=== PATIENT | female | born 1935 | race Two or more races ===

== ENCOUNTER 2019-03-01 23:04 | Inpatient (IN) | payer OTHER ==
[~2019-03-01] VITALS: Ht 149.9 cm; Wt 65.8 kg
[~2019-03-01 23:04] MED LIST: ABILIFY5 MG PO; ALTACE5 MG; BUDEPRION XL300 MG PO; CYPROHEPTADINE H4 MG PO; EXELON1 PATCH .1; LEXAPRO5 MG PO; NAMENDA10 MG; PLAVIX75 MG PO; REMIPRIL; SENNA PLUS TABL1 TAB NGT
[2019-03-01] MEDS ORDERED: ZOCOR20 MG (23:29)
[2019-03-01] MEDS ORDERED: NAMENDA5 MG (23:29)
[2019-03-01] MEDS ORDERED: ZYPREXA2.5 MG (23:30)
[2019-03-01] MEDS ORDERED: ALTACE5 MG (23:30)
[2019-03-01] MEDS ORDERED: LEXAPRO20 MG (23:30)
[2019-03-01] MEDS ORDERED: ZIAC 2.5-6.251 EACH (23:30)
[2019-03-01] MEDS ORDERED: PLAVIX75 MG (23:30)
[2019-03-01] MEDS ORDERED: ARICEPT10 MG (23:31)
== END 2019-03-06 14:07 | disposition home or self-care (01) | DRG 57 ==
LOC: ER 23:04 → EDBD 23:24 → MEDJ 03-02 13:43
PROVIDERS: ADMIT Internal Medicine
PROC: B020ZZZ Computerized Tomography (CT Scan) of Brain (ICD-10-PCS; principal; 2019-03-02)
PROC: B246ZZZ Ultrasonography of Right and Left Heart (ICD-10-PCS; 2019-03-02)
PROC: B345ZZZ Ultrasonography of Bilateral Common Carotid Arteries (ICD-10-PCS; 2019-03-02)
PROC: B348ZZZ Ultrasonography of Bilateral Internal Carotid Arteries (ICD-10-PCS; 2019-03-02)
PROC: B030ZZZ Magnetic Resonance Imaging (MRI) of Brain (ICD-10-PCS; 2019-03-02)
DX: I69.354 Hemiplegia and hemiparesis following cerebral infarction affecting left non-dominant side (principal); N39.0 Urinary tract infection, site not specified; R65.10 Systemic inflammatory response syndrome (SIRS) of non-infectious origin without acute organ dysfunction; G30.8 Other Alzheimer's disease; F02.80 Dementia in other diseases classified elsewhere, unspecified severity, without behavioral disturbance, psychotic disturbance, mood disturbance, and anxiety; I10 Essential (primary) hypertension; E87.6 Hypokalemia; B96.29 Other Escherichia coli [E. coli] as the cause of diseases classified elsewhere; I73.89 Other specified peripheral vascular diseases; G25.5 Other chorea; G25.89 Other specified extrapyramidal and movement disorders; D72.828 Other elevated white blood cell count
CPT/HCPCS: 70551

== ENCOUNTER 2019-07-11 18:17 | Emergency (ER) | payer OTHER ==
[~2019-07-11] VITALS: Ht 127 cm; Wt 58.1 kg
[~2019-07-11 18:17] MED LIST changes: +ARICEPT10 MG; +LEXAPRO20 MG; +NAMENDA5 MG; +PLAVIX75 MG; +ZIAC 2.5-6.251 EACH; +ZOCOR20 MG; +ZYPREXA2.5 MG
[2019-07-11] MEDS ORDERED: TIROSINT100 MCG (18:25)
== END 2019-07-11 21:23 | disposition home or self-care (01) ==
LOC: ER 18:17
DX: J06.9 Acute upper respiratory infection, unspecified (principal)

== ENCOUNTER 2019-10-14 10:19 | Emergency (ER) | payer OTHER ==
[~2019-10-14] VITALS: Ht 127 cm; Wt 62.6 kg
[~2019-10-14 10:19] MED LIST changes: +TIROSINT100 MCG
[2019-10-14] MEDS ORDERED: NAMENDA10 MG PO (10:40)
[2019-10-14] MEDS ORDERED: LEXAPRO20 MG PO (10:40)
[2019-10-14] MEDS ORDERED: ZIAC 2.5-6.251 EACH PO (10:41)
[2019-10-14] MEDS ORDERED: MAXIMUM DAILY1 EACH PO (10:41)
[2019-10-14] MEDS ORDERED: NUPLAZID34 MG PO (10:42)
== END 2019-10-14 14:16 | disposition home or self-care (01) ==
LOC: ER 10:19
DX: R05 Cough (principal)

== ENCOUNTER 2020-10-21 16:02 | Emergency (ER) | payer OTHER ==
[~2020-10-21] VITALS: Ht 127 cm; Wt 68.0 kg
[~2020-10-21 16:02] MED LIST changes: +LEXAPRO20 MG PO; +MAXIMUM DAILY1 EACH PO; +NAMENDA10 MG PO; +NUPLAZID34 MG PO; +ZIAC 2.5-6.251 EACH PO
[2020-10-21] MEDS ORDERED: NUPLAZID34 MG (16:51)
[2020-10-21] MEDS ORDERED: ZIAC 2.5-6.251 EACH (16:51)
[2020-10-21] MEDS ORDERED: ZOCOR20 MG (16:52)
[2020-10-21] MEDS ORDERED: ZYPREXA2.5 MG (16:53)
[2020-10-21] MEDS ORDERED: XANAX0.25 MG (16:53)
== END 2020-10-21 21:58 | disposition home or self-care (01) ==
LOC: ER 16:02
DX: B34.9 Viral infection, unspecified (principal); R05 Cough; Z03.818 Encounter for observation for suspected exposure to other biological agents ruled out

== ENCOUNTER 2021-01-30 14:44 | Inpatient (IN) | payer OTHER ==
[~2021-01-30] VITALS: Ht 157.5 cm; Wt 68.9 kg
[~2021-01-30 14:44] MED LIST changes: +NUPLAZID34 MG; +XANAX0.25 MG
[2021-01-30] MEDS ORDERED: PLAVIX75 MG PO (15:02)
[2021-01-30] MEDS ORDERED: LEXAPRO20 MG PO (15:02)
[2021-01-30] MEDS ORDERED: NUPLAZID34 MG PO (15:02)
[2021-01-30] MEDS ORDERED: ZOCOR20 MG PO (15:03)
[2021-01-30] MEDS ORDERED: ZIAC 10/6.25 MG1 TAB PO (15:03)
[2021-01-30] MEDS ORDERED: XANAX0.25 MG PO (15:03)
[2021-02-05] MEDS ORDERED: TOPROL XL25 M1 PO (09:17)
[2021-02-05] MEDS ORDERED: ALPRAZOLAM0.25 MG PO (09:17)
[2021-02-05] MEDS ORDERED: LOSARTAN POTASS50 MG PO (09:17)
[2021-02-05] MEDS ORDERED: POM (MEDICAMENTO EN PO (09:17)
[2021-02-05] MEDS ORDERED: LIPITOR40 MG PO (09:17)
== END 2021-02-05 11:10 | disposition home or self-care (01) | DRG 281 ==
LOC: ER 14:44 → MEDJ 01-31 10:53
PROVIDERS: ADMIT Internal Medicine; ATTEND Internal Medicine
PROC: 4A12X4Z Monitoring of Cardiac Electrical Activity, External Approach (ICD-10-PCS; principal; 2021-02-01)
PROC: B24BZZZ Ultrasonography of Heart with Aorta (ICD-10-PCS; 2021-02-01)
DX: I21.4 Non-ST elevation (NSTEMI) myocardial infarction (principal); N39.0 Urinary tract infection, site not specified; I10 Essential (primary) hypertension; Z20.822 Contact with and (suspected) exposure to COVID-19

== ENCOUNTER 2021-10-29 14:53 | Inpatient (IN) | payer OTHER ==
[~2021-10-29] VITALS: Ht 127 cm; Wt 62.6 kg
[~2021-10-29 14:53] MED LIST changes: +ALPRAZOLAM0.25 MG PO; +LIPITOR40 MG PO; +LOSARTAN POTASS50 MG PO; +POM (MEDICAMENTO EN PO; +TOPROL XL25 M1 PO; +XANAX0.25 MG PO; +ZIAC 10/6.25 MG1 TAB PO; +ZOCOR20 MG PO
== END 2021-11-12 12:52 | disposition home or self-care (01) | DRG 689 ==
LOC: ER 14:53 → MEDJ 22:37
PROVIDERS: ADMIT Internal Medicine; ATTEND Internal Medicine
PROC: 05H533Z Insertion of Infusion Device into Right Subclavian Vein, Percutaneous Approach (ICD-10-PCS; principal; 2021-10-29)
PROC: BW21ZZZ Computerized Tomography (CT Scan) of Abdomen and Pelvis (ICD-10-PCS; 2021-10-29)
PROC: BW28ZZZ Computerized Tomography (CT Scan) of Head (ICD-10-PCS; 2021-10-29)
PROC: B345ZZZ Ultrasonography of Bilateral Common Carotid Arteries (ICD-10-PCS; 2021-10-29)
PROC: B246YZZ Ultrasonography of Right and Left Heart using Other Contrast (ICD-10-PCS; 2021-11-03)
DX: N39.0 Urinary tract infection, site not specified (principal); I21.4 Non-ST elevation (NSTEMI) myocardial infarction; F02.81 Dementia in other diseases classified elsewhere, unspecified severity, with behavioral disturbance; N17.8 Other acute kidney failure; E46 Unspecified protein-calorie malnutrition; B96.1 Klebsiella pneumoniae [K. pneumoniae] as the cause of diseases classified elsewhere; D72.829 Elevated white blood cell count, unspecified; N13.1 Hydronephrosis with ureteral stricture, not elsewhere classified; I10 Essential (primary) hypertension; G30.8 Other Alzheimer's disease; Z91.83 Wandering in diseases classified elsewhere; I73.89 Other specified peripheral vascular diseases; R82.71 Bacteriuria; E03.8 Other specified hypothyroidism; E78.2 Mixed hyperlipidemia; Z20.822 Contact with and (suspected) exposure to COVID-19